=== PATIENT | female | born 1985 | race Caucasian/White ===

== ENCOUNTER 2016-05-20 21:27 | Emergency (ER) | payer BC ==
[~2016-05-20] VITALS: Ht 162.6 cm; Wt 74.8 kg
[~2016-05-20 21:27] MED LIST: AMBIEN5 MG ORAL; BENADRYL25 MG ORAL; BENZTROPINE MESY2 MG ORAL; COGENTIN1 MG ORAL; QUETIAPINE FUM400 MG ORAL; QUETIAPINE FUMA25 MG ORAL
[2016-05-20] MEDS ORDERED: KLONOPIN0.5 MG ORAL (21:58)
[2016-05-20] MEDS ORDERED: DEPAKOTE250 MG PO (21:58)
[2016-05-20] MEDS ORDERED: LATUDA60 MG PO (21:58)
[2016-05-20] MEDS ORDERED: SYNTHROID25 MCG ORAL (21:58)
[2016-05-20] MEDS ORDERED: Depakote 500mg tab ORAL ONE (22:30)
[2016-05-20] MEDS: LORazepam Inj 2mg/ml 1ml IM ONE (23:06)
[2016-05-20] MEDS ORDERED: DiphenhydrAMINE 50mg/ml Inj IM ONE (23:15)
[2016-05-20 23:40] LABS: BASOPHILS % (AUTO) 0.6 % (0.0-2.0); EOSINOPHILS % (AUTO) 0.2 % (0.0-3.0); LYMPHOCYTES % (AUTO) 34.9 % (20.0-45.0); MEAN CORPUSCULAR HEMOGLOBIN 30.8 PG (27.0-31.0); MEAN CORPUSCULAR HGB CONC 34.3 G/DL (32.0-36.0); MEAN CORPUSCULAR VOLUME 90 FL (80-99); MEAN PLATELET VOLUME 15.9 FL (6.5-10.1); MONOCYTES % (AUTO) 10.3 % (1.0-10.0); PLATELET COUNT 144 K/UL (150-450); RED BLOOD COUNT 4.79 M/UL (4.20-5.40); RED CELL DISTRIBUTION WIDTH 11.6 % (11.6-14.8)
[2016-05-20 23:55] LABS: ACETAMINOPHEN < 10 ug/mL (10-30); ALANINE AMINOTRANSFERASE 30 U/L (3-33); ALBUMIN/GLOBULIN RATIO 1.5 (1.0-2.7); ALCOHOL < 10 mg/dL; ANION GAP 22 (5-15); ASPARTATE AMINO TRANSFERASE 96 U/L (5-40); CALCIUM 10.3 mg/dL (8.6-10.2); CARBON DIOXIDE 24 mEQ/L (20-30); CHLORIDE 97 mEQ/L (98-107); CREATININE 1.2 mg/dL (0.5-0.9); GLOMERULAR FILTRATION RATE 53.5 mL/min (>60); HEMOLYSIS 4; POTASSIUM 3.2 mEQ/L (3.4-4.9); SODIUM 143 mEQ/L (135-145); TOTAL PROTEIN 8.5 g/dL (6.6-8.7)
[2016-05-21] VITALS (7 sets, daily range): BP systolic 97–130; BP diastolic 57–89
--- NOTE | 2016-05-21 00:45 | Emergency Room Report ---
History of Present Illness General Chief Complaint: Medication Refill Source: Family Member Present Illness HPI 30 YO F brought in by parents for agitated behavior, requesting meds she hasnt taken for 24 hours since eloping from outside psych/treatment facility. Patient denies SI, HI, AVH. ?Drug use in past. Parents requesting clonazepam, depakote, lotuda meds. Patient allergic to Hadol /risperdal. Parents stay that Court has ordered another guardian to make decisions for their daughter, neither of them technically have authority. They are requesting transfer to [facility] psych facility. Allergies: Coded Allergies: HALOPERIDOL (Unverified Allergy, Unknown, 07/29/14) RISPERIDONE (Unverified Allergy, Unknown, 07/29/14) Patient History Past Medical History: seizures Past Surgical History: none Pertinent Family History: none Social History: Reports: drug use Last Menstrual Period: 04/29/16 Now: No Immunizations: UTD Reviewed Nursing Documentation: PMH: Agreed, PSxH: Agreed Nursing Documentation-PMH Past Medical History: No History, Except For History Of Psychiatric Problem: Yes - Schizoaffective, bipolar Review of Systems All Other Systems: negative except mentioned in HPI Physical Exam Vital Signs Date Time Temp Pulse Resp B/P Pulse Ox O2 Delivery O2 Flow Rate FiO2 05/20/16 21:51 97.3 94 16 145/84 100 Room Air Sp02 EP Interpretation: reviewed, normal General Appearance: alert, GCS 15, non-toxic, other - agitated, flighty Head: normocephalic, atraumatic Eyes: bilateral eye EOMI, bilateral eye PERRL ENT: normal ENT inspection, hearing grossly normal, normal voice Neck: normal inspection, full range of motion, supple, thyroid normal, no meningismus, no bony tend Respiratory: normal inspection, lungs clear, normal breath sounds, no respiratory distress, no retraction, no accessory muscle use, no wheezing Cardiovascular #1: normal inspection, normal peripheral pulses, regular rate, rhythm, no edema Gastrointestinal: normal inspection, normal bowel sounds, non tender, soft, no guarding, no hernia Genitourinary: no CVA tenderness Musculoskeletal: normal inspection, back normal, normal range of motion, Yue' s Sign negative Neurologic: normal inspection, alert, oriented x3, responsive, edi architect III-XII nml as tested, motor strength/tone normal, speech normal Psychiatric: normal inspection, judgement/insight normal, mood/affect normal Skin: normal inspection, normal color, no rash Lymphatic: normal inspection Medical Decision Making Diagnostic Impression: Primary Impression: Behavior concern in adult Additional Impressions: Hypokalemia MARYANN (acute kidney injury) ER Course 30 YO F in ED for psych eval, non-compliance with meds, behavioral disturbance Labs: Leuks elevated likely to stress reaction Utox + for meth. UA: Multiple bacteria with multiple Squams, likely contaminated Mild hypoK. Mild MARYANN K replated, patient tolerating PO and PO fluids pushed in ED for mild MARYANN Depakote and clonazepam given in ED We do not have Lotuda Patient continued to try to leave ED, wouldnt allow laboratory testing, required sedation with IV ativan/benadryl which was effective Medically cleared for PET EKG Diagnostic Results Rate: tachycardiac Rhythm: NSR ST Segments: no acute changes ASA given to the pt in ED: No Reevaluation Time: 05:45 Last Vital Signs Date Time Temp Pulse Resp B/P Pulse Ox O2 Delivery O2 Flow Rate FiO2 05/21/16 00:03 97.3 86 18 120/57 98 Room Air Status: improved Reevaluation Impression Spoke to [facility] at 545am. They were concerned for ?guardianship of patient because when patient's parents were here before - father was stating Court appointed guardian; mother stated that was an "old issue" and that she doesnt have guardian appointed currently. I spoke to patient's mother at 545am, she will call [facility] to talk with them and clear up guardianship issue Patient remains medically cleared and stable for transfer to [facility] as soon as approved. Will endorse to Dr Quezada at 630am Disposition: XFER TO PSYCH HOSP/UNIT Condition: Serious Referrals: NOT CHOSEN ROWENA/,REFERRING (PCP) OSCAR HORTON M.D. May 21, 2016 00:45
[2016-05-21 01:11] LABS: KETONES,URINE 3+ (NEGATIVE); LEUKOCYTE ESTERASE ,URINE 1+ (NEGATIVE); NITRITE,URINE NEGATIVE (NEGATIVE); PH,URINE 7 (4.5-8.0); PROTEIN,URINE 2+ (NEGATIVE); UROBILINOGEN,URINE NORMAL MG/DL (0.0-1.0)
[2016-05-21 01:17] LABS: APPEARANCE,URINE SLIGHTLY CLOUDY
[2016-05-21 01:20] LABS: BACTERIA,URINE MODERATE /HPF; SQUAMOUS EPITHELIAL CELL,UR MANY /LPF (NONE/OCC)
[2016-05-21 01:21] LABS: MUCUS,URINE MANY /LPF (NONE/OCC)
[2016-05-21] MEDS: LORazepam Inj 2mg/ml 1ml IM ONE (02:01)
[2016-05-21] MEDS ORDERED: RESTORIL30 MG ORAL (07:44)
[2016-05-21] MEDS ORDERED: Depakote 500mg tab ORAL ONE (08:15)
[2016-05-21] MEDS ORDERED: LATUDA60 MG PO (12:44)
--- NOTE | 2016-05-25 08:38 | Cardiology Report ---
APPROVED REPORT EKG Measurement Heart [id number] Sinus tachycardia Otherwise normal ECG
== END 2016-05-21 18:00 | disposition short-term general hospital (02) ==
LOC: EMR 22:30
DX: F91.8 Other conduct disorders (principal); E87.6 Hypokalemia; N17.9 Acute kidney failure, unspecified; Z88.8 Allergy status to other drugs, medicaments and biological substances; F25.9 Schizoaffective disorder, unspecified; F31.9 Bipolar disorder, unspecified
CPT/HCPCS: 36415; 80053; 80300; 81003; 81025; 85025; 87086; 93005; 96372; 99285; G0480; J1200; 80329; J8499